=== PATIENT | female | born 1960 | race African-American/Black ===

== ENCOUNTER 2017-12-05 16:28 | Inpatient (IN) | payer OTHER ==
--- NOTE | 2017-12-05 19:55 | HP ---
Admission [facility] Chief Complaint: I am here for rehab Allergies/Adverse Reactions: Allergies Allergy/AdvReac Type Severity Reaction Status Date / Time No Known Allergies Allergy Unverified 12/05/17 19:08 History of Present Illness: 57 yo female with hx of alcohol and cocaine dependence is here seeking rehab.PMHX: COPD, HTN, HVI + on [facility] therapy reports compliance, hyperlipidemia , depression, anxiety, insomnia. Denies any suicidal / homicidal ideation or suicide attempts. Longest period of time 3 years. - Ebola screening Have you traveled outside of the country in the last 21 days: No Have you had contact with anyone from an Ebola affected area: No Do you have a fever: No - Review of Systems Constitutional: No Symptoms Reported, Changes in sleep, Weakness (15 lbs), Unintentional Wgt. Loss EENT: reports: No Symptoms Reported Respiratory: reports: No Symptoms reported Cardiac: reports: No Symptoms Reported GI: reports: No Symptoms Reported : reports: No Symptoms Reported Musculoskeletal: reports: No Symptoms Reported Integumentary: reports: No Symptoms Reported Neuro: reports: Tingling (neuropathy left thumb) Endocrine: reports: No Symptoms Reported Hematology: reports: No Symptoms Reported Psychiatric: reports: Orientated x3, Anxious Other Systems: Reviewed and Negative Patient History - Patient Medical History Hx Anemia: No Hx Asthma: No Hx Chronic Obstructive Pulmonary Disease (COPD): Yes Hx Cancer: No Hx Cardiac Disorders: No Hx Congestive Heart Failure: No Hx Hypertension: Yes Hx Hypercholesterolemia: Yes Hx Pacemaker: No HX Cerebrovascular Accident: No Hx Seizures: No Hx Dementia: No Hx Diabetes: No Hx Gastrointestinal Disorders: No Hx Liver Disease: No Hx Genitourinary Disorders: No 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) Hx Renal Disease (ESRD): No Hx Thyroid Disease: No Hx Human Immunodeficiency Virus (HIV): Yes (since 1991, on meds, reports compliance ) Hx Hepatitis C: No Hx Depression: Yes Hx Suicide Attempt: No Hx Bipolar Disorder: No Hx Schizophrenia: No - Patient Surgical History Past Surgical History: Yes Hx Neurologic Surgery: No Hx Cataract Extraction: No Hx Cardiac Surgery: No Hx Lung Surgery: No Hx Breast Surgery: No Hx Breast Biopsy: No Hx Abdominal Surgery: No Hx Appendectomy: No Hx Cholecystectomy: Yes (open cholecystectomy in 1979) Hx Genitourinary Surgery: No Hx Section: No Hx Orthopedic Surgery: No Hx Hysterectomy: No Anesthesia Reaction: No - PPD History Previous Implant?: No Documented Results: Positive w/o proof PPD to be Administered?: Yes - Reproductive History Patient is a Female of Child Bearing Age (11 -55 yrs old): No - Smoking Cessation Smoking history: Former smoker Have you smoked in the past 12 months: No If you are a former smoker, when did you quit?: 2016 Hx Chewing Tobacco Use: No Initiated information on smoking cessation: Yes 'Breaking Loose' booklet given: 12/05/17 - Substance & Tx. History Hx Alcohol Use: Yes Hx Substance Use: Yes Substance Use Type: Alcohol, Cocaine Hx Substance Use Treatment: Yes ([facility] Summer 2016) - Substances Abused Alcohol Route: Oral Frequency: Daily Amount used: 1 pint Bacardi Age of first use: 18 Date of Last Use: 12/03/17 Crack Route: Smoking Frequency: Daily Amount used: $40 Age of first use: 18 Date of Last Use: 12/03/17 Family Disease History - Family Disease History Family Disease History: Heart Disease: Mother (alive, Stroke ), Other: Father ( ), Mother Admission Physical Exam [facility] - Physical General Appearance: Yes: No Apparent Distress, Appropriately Dressed, Thin, Anxious HEENTM: Yes: EOMI, Normal ENT Inspection, Pharynx Normal, Tm's normal, Other ( wears glasses) Respiratory: Yes: Chest Non-Tender, Lungs Clear, Normal Breath Sounds, No Respiratory Distress, No Accessory Muscle Use Neck: Yes: No masses,lesions,Nodules, Trachea in good position Breast: Yes: Breast Exam Deferred Cardiology: Yes: Regular Rhythm, Regular Rate Abdominal: Yes: Normal Bowel Sounds, Non Tender Genitourinary: Yes: Within Normal Limits Back: Yes: Normal Inspection Musculoskeletal: Yes: Within Normal Limits, full range of Motion, Gait Steady, Pelvis Stable Extremities: Yes: Normal Capillary Refill, Normal Inspection, Normal Range of Motion, Non-Tender Neurological: Yes: law enforcement director II-XII NML intact, Fully Oriented, Alert, Motor Strength 5/5, Normal Mood/Affect, Normal Response Integumentary: Yes: Normal Color, Dry, Warm Lymphatic: Yes: Within Normal Limits - Diagnostic (1) COPD (chronic obstructive pulmonary disease) Current Visit: Yes Status: Chronic Qualifiers: Emphysema type: unspecified (2) HTN (hypertension) Current Visit: Yes Status: Chronic Qualifiers: Hypertension type: unspecified Qualified Code(s): I10 - Essential (primary ) hypertension (3) Hyperlipidemia Current Visit: Yes Status: Chronic Qualifiers: Hyperlipidemia type: unspecified Qualified Code(s): E78.5 - Hyperlipidemia , unspecified (4) Alcohol dependence Current Visit: Yes Status: Active (5) Cocaine dependence Current Visit: Yes Status: Active (6) Human immunodeficiency virus infection Current Visit: Yes Status: Chronic (7) Weight decreased Current Visit: Yes Status: Active [facility] Breath Alcohol Content Breath Alcohol Content: 0 Inpatient Rehab Admission - Initial Determination Are CD services needed?: Yes Free of communicable disease: Yes Not in need of hospitalization: Yes - Rehab Admission Criteria Previous failed treatment: Yes Poor recovery environment: Yes Comorbidities: Yes Lacks judgement: Yes Patient is meeting Inpatient Rehab admission criteria:: Yes
[2017-12-05] MEDS ORDERED: MAG HYDROX/AL HYDROX/SIMETH 30 ML UNIT-DOSE CUP PO PRN (20:17)
[2017-12-05] MEDS ORDERED: ACETAMINOPHEN 325 MG TABLET (FP) PO PRN (20:17)
[2017-12-05] MEDS ORDERED: hydrOXYzine PAMOATE 50 MG CAPSULE (FP) PO PRN (20:17)
[2017-12-05] MEDS ORDERED: guaiFENesin/D-METHORPHAN HB 10 ML UNIT-DOSE CUPS PO PRN (20:17)
[2017-12-05] MEDS ORDERED: MAGNESIUM HYDROX 2400MG/30ML ORAL SUSPENSION 30 ML CUP PO PRN (20:17)
[2017-12-05] MEDS ORDERED: MAGNESIUM CITRATE 300 ML BOTTLE PO PRN (20:17)
[2017-12-05] MEDS ORDERED: IBUPROFEN 400 MG TABLET (FP) PO PRN (20:17)
[2017-12-05] MEDS ORDERED: LOPERAMIDE HCL 2 MG CAPSULE PO PRN (20:17)
[2017-12-05] MEDS ORDERED: P-EPHED 60MG/TRIPROLIDI 2.5MG TABLET PO PRN (20:17)
[2017-12-05] MEDS ORDERED: MENTHOL/PHENOL 1 EACH UD MM PRN (20:17)
[2017-12-05] MEDS ORDERED: MELATONIN 5 MG TABLETS PO PRN (22:00)
[2017-12-05] MEDS: ALBUTEROL SO4 18 GM HFA INHALER IH SCH (23:38)
[2017-12-05] MEDS: THIAMINE HCL 100 MG TABLET (FP) PO SCH (23:38)
[2017-12-06 02:19] LABS: URINE APPEARANCE SLCLOUDY; URINE BILIRUBIN NEGATIVE (<2.0 mg/dL); URINE BLOOD NEGATIVE (NEGATIVE); URINE COLOR YELLOW; URINE GLUCOSE (UA) NEGATIVE (NEGATIVE); URINE KETONE NEGATIVE (NEGATIVE); URINE LEUK ESTERASE NEGATIVE (NEGATIVE); URINE NITRITE NEGATIVE (NEGATIVE); URINE PROTEIN NEGATIVE (NEGATIVE); URINE UROBILINOGEN NEGATIVE mg/dL (0.2-1.0)
[2017-12-06] MEDS: ALBUTEROL SO4 18 GM HFA INHALER IH SCH (07:29)
[2017-12-06] MEDS ORDERED: ALBUTEROL SO4 18 GM HFA INHALER IH PRN (08:49)
[2017-12-06] MEDS: PRENATAL VITAMINS W/ FOLIC ACID TABLET (FP) PO SCH (09:37)
[2017-12-06] MEDS: valACYclovir HCL 500 MG TABLET (FP) PO SCH (09:37)
--- NOTE | 2017-12-06 10:19 | PN ---
[facility] Progress Note Note: Called by nursing staff to order medications for patient admitted to inpatient rehab on 12/05/17. Medication reconciliation done. She is on Wellbutrin XL 150 mg po daily and Trazadone 25 mg po HS. Patient to have her own medications
[2017-12-06 10:33] LABS: HEMATOCRIT 36.3 % (32.4-45.2); HEMOGLOBIN 12.3 GM/dL (10.7-15.3); MCH 33.7 pg (25.7-33.7); MCHC 33.9 g/dl (32.0-36.0); MEAN CELL VOLUME 99.5 fl (80-96); MEAN PLT VOLUME 8.2 fl (7.5-11.1); PLATELET COUNT 304 K/MM3 (134-434); RBC 3.65 M/mm3 (3.60-5.2); WHITE BLOOD COUNT 3.3 K/mm3 (4.0-10.0)
--- NOTE | 2017-12-06 10:41 | EKG ---
Test Reason : Blood Pressure : / mmHG Vent. Rate : 064 BPM Atrial Rate : 064 BPM P-R Int : 152 ms QRS Dur : 078 ms QT Int : 416 ms P-R-T Axes : 068 048 051 degrees QTc Int : 429 ms NORMAL SINUS RHYTHM WITH SINUS ARRHYTHMIA NORMAL ECG NO PREVIOUS ECGS AVAILABLE Confirmed by MD Mikey, Srikanth ([id number]) on 12/06/2017 10:40:35 AM Referred By: Confirmed By:Srikanth Jensen MD
[2017-12-06 10:52] LABS: CALCIUM 8.9 mg/dL (8.5-10.1); CHLORIDE 110 mmol/L (98-107); POTASSIUM 3.7 mmol/L (3.5-5.1); SODIUM 145 mmol/L (136-145)
[2017-12-06 10:57] LABS: ALBUMIN 3.5 g/dl (3.4-5.0); ALK PHOS 81 U/L (45-117); ANION GAP 7 (8-16); BILIRUBIN,TOTAL 0.3 mg/dL (0.2-1.0); BLOOD UREA NITROGEN 17 mg/dL (7-18); CO2 28 mmol/L (21-32); CREATININE 0.8 mg/dL (0.55-1.02); GLUCOSE,RANDOM 91 mg/dL (74-106); SGOT/AST 14 U/L (15-37); SGPT/ALT 17 U/L (12-78)
[2017-12-06] MEDS ORDERED: PT OWN MED DRAWER 7, Y5N ONE ×3 (11:36→22:00)
[2017-12-06] MEDS ORDERED: ALBUTEROL SO4 2.5/IPRATROPIUM 0.5 INH SOL 3 ML VIAL.NEB. NEB PRN (12:06)
--- NOTE | 2017-12-06 12:26 | HP ---
Psychiatrist Admission - Data Date of interview: 12/06/17 Admission source: [facility] Identifying data: This is the second 3E inpatient rehabilitation admission for this single AA female, residing in [facility] and supported on [facility] benefits. Medical History: of HIV positive since 1991 HTN and COPD. Psychiatric History: Patient reports history of depression and anxiety, no history of psychiatric hospitlaizations, states has been in the treatment in outpatient setting at [facility], currently on Trazodone 25 mg po hs and Wellbutrin 150 mg po daily, reports no history of suicidal attepmts. Physical/Sexual Abuse/Trauma History: Patient denies history of sexual, physical and verbal abuse. Vital Signs: Vital Signs - 24 hr 12/06/17 12/06/17 12/06/17 03:30 07:37 09:43 Temperature 97.8 F Pulse Rate 65 81 Respiratory 18 18 Rate Blood Pressure 125/83 112/77 Allergies/Adverse Reactions: Allergies Allergy/AdvReac Type Severity Reaction Status Date / Time No Known Allergies Allergy Verified 12/06/17 09:54 Date of last physical exam: 12/05/17 Concur with the findings of this exam: Yes - Substance Abuse/Tx History Hx Alcohol Use: Yes Hx Substance Use: Yes Substance Use Type: Alcohol (started at age 18, daily 1 pint baradi), Cocaine ( started at age 18, daily use for $40) Hx Substance Use Treatment: Yes ([facility] 2017.) Mental Status Exam - Mental Status Exam Alert and Oriented to: Time, Place, Person Cognitive Function: Good Patient Appearance: Well Groomed Mood: Hopeful Affect: Appropriate, Mood Congruent Patient Behavior: Appropriate, Cooperative Speech Pattern: Clear, Appropriate Voice Loudness: Normal Thought Process: Intact, Goal Oriented Hallucinations: Denies Homicidal Ideation: Denies Insight/Judgement: Fair Sleep: Well Appetite: Good Muscle strength/Tone: Normal Gait/Station: Normal Psychiatric Findings - Problem List (Model 1, 2,3) (1) MDD (major depressive disorder) Current Visit: Yes Status: Acute (2) Alcohol dependence Current Visit: Yes Status: Active (3) Cocaine dependence Current Visit: Yes Status: Active (4) COPD (chronic obstructive pulmonary disease) Current Visit: Yes Status: Chronic Qualifiers: Emphysema type: unspecified (5) HTN (hypertension) Current Visit: Yes Status: Chronic Qualifiers: Hypertension type: unspecified Qualified Code(s): I10 - Essential (primary ) hypertension (6) Human immunodeficiency virus infection Current Visit: Yes Status: Chronic (7) Hyperlipidemia Current Visit: Yes Status: Chronic Qualifiers: Hyperlipidemia type: unspecified Qualified Code(s): E78.5 - Hyperlipidemia , unspecified - Initial Treatment Plan Initial Treatment Plan: Will continue her current medications, monitor progress as needed.
[2017-12-06] MEDS: PATIENT'S OWN MEDICATION (NON-FORMULARY) (Amlodipine Besylate [Amlodipine Besylate] 10 MG) PO SCH (12:34)
[2017-12-06] MEDS: [UNRECOGNIZED DRUG - OTHER] PO SCH ×2 (12:34→21:57)
[2017-12-06] MEDS: CALCIUM CARBONATE PO SCH ×2 (12:34→21:57)
[2017-12-06] MEDS: BUPROPION HCL 150 MG PO SCH (12:34)
[2017-12-06] MEDS: TRIAMTERENE AND HCTZ - 37.5 MG/25 MG CAPSULE PO SCH (12:34)
[2017-12-06] MEDS: VITAMIN D3 PO SCH ×2 (12:34→21:57)
[2017-12-06] MEDS ORDERED: PATIENT'S OWN MEDICATION (NON-FORMULARY) (Famotidine [Pepcid] 40 MG) PO SCH ×2 (14:00→22:00)
[2017-12-06] MEDS: THIAMINE HCL 100 MG TABLET (FP) PO SCH (21:56)
[2017-12-06] MEDS: PATIENT'S OWN MEDICATION (NON-FORMULARY) (Montelukast Sodium [Singulair] 10 MG) PO SCH (22:00)
[2017-12-06] MEDS: PATIENT'S OWN MEDICATION (NON-FORMULARY) (Pravastatin Sodium [Pravastatin Sodium] 10 MG) PO SCH (22:01)
[2017-12-07] MEDS: PATIENT'S OWN MEDICATION (NON-FORMULARY) (Famotidine [Pepcid] 40 MG) PO SCH (06:36)
[2017-12-07] MEDS ORDERED: PT OWN MED DRAWER 7, Y5N ONE (08:55)
[2017-12-07] MEDS: TRIAMTERENE AND HCTZ - 37.5 MG/25 MG CAPSULE PO SCH (10:54)
[2017-12-07] MEDS: BUPROPION HCL 150 MG PO SCH (10:54)
[2017-12-07] MEDS: PATIENT'S OWN MEDICATION (NON-FORMULARY) (Amlodipine Besylate [Amlodipine Besylate] 10 MG) PO SCH (10:54)
[2017-12-07] MEDS: valACYclovir HCL 500 MG TABLET (FP) PO SCH (10:54)
[2017-12-07] MEDS: PRENATAL VITAMINS W/ FOLIC ACID TABLET (FP) PO SCH (10:54)
[2017-12-07] MEDS: CALCIUM CARBONATE PO SCH ×2 (10:55→21:52)
[2017-12-07] MEDS: [UNRECOGNIZED DRUG - OTHER] PO SCH ×2 (10:55→21:52)
[2017-12-07] MEDS: VITAMIN D3 PO SCH ×2 (10:55→21:52)
--- NOTE | 2017-12-07 10:58 | PN ---
[facility] Progress Note Note: Pt presents with complaints of fungal rash to feet. Laboratory Tests 12/05/17 12/06/17 12/06/17 20:03 07:00 07:00 WBC 3.3 L RBC 3.65 Hgb 12.3 Hct 36.3 MCV 99.5 H MCH 33.7 MCHC 33.9 RDW 14.0 Plt Count 304 MPV 8.2 Sodium 145 Potassium 3.7 Chloride 110 H Carbon Dioxide 28 Anion Gap 7 L BUN 17 Creatinine 0.8 Creat Clearance w eGFR > 60 Random Glucose 91 Calcium 8.9 Total Bilirubin 0.3 AST 14 L ALT 17 Alkaline Phosphatase 81 Total Protein 7.0 Albumin 3.5 Urine Color Yellow Urine Appearance Slcloudy Urine pH 6.0 Ur Specific [place] 1.019 Urine Protein Negative Urine Glucose (UA) Negative Urine Ketones Negative Urine Blood Negative Urine Nitrite Negative Urine Bilirubin Negative Urine Urobilinogen Negative Ur Leukocyte Esterase Negative Vital Signs Temperature 98.2 F 12/07/17 07:18 Pulse Rate 68 12/07/17 09:56 Respiratory Rate 18 12/07/17 07:18 Blood Pressure 123/83 12/07/17 09:56 O2 Sat by Pulse Oximetry (%) Subj: + rash and itching to feet Obj: skin warm and dry. + cracking in between toes. No discharge or inflammation. A/P: fungal rash of feet/athletes foot will order clotrimazole cream to feet BID and continue to monitor clinically
[2017-12-07] MEDS: THIAMINE HCL 100 MG TABLET (FP) PO SCH (21:50)
[2017-12-07] MEDS: CLOTRIMAZOLE 1% CREAM 15 GM TUBE TP SCH (21:51)
[2017-12-07] MEDS: PATIENT'S OWN MEDICATION (NON-FORMULARY) (Montelukast Sodium [Singulair] 10 MG) PO SCH (21:52)
[2017-12-07] MEDS: PATIENT'S OWN MEDICATION (NON-FORMULARY) (Pravastatin Sodium [Pravastatin Sodium] 10 MG) PO SCH (21:55)
[2017-12-08] MEDS: PATIENT'S OWN MEDICATION (NON-FORMULARY) (Famotidine [Pepcid] 40 MG) PO SCH (06:30)
[2017-12-08] MEDS ORDERED: PT OWN MED DRAWER 7, Y5N ONE ×4 (08:46→21:54)
[2017-12-08] MEDS: PRENATAL VITAMINS W/ FOLIC ACID TABLET (FP) PO SCH (10:30)
[2017-12-08] MEDS: valACYclovir HCL 500 MG TABLET (FP) PO SCH (10:30)
[2017-12-08] MEDS: BUPROPION HCL 150 MG PO SCH (10:31)
[2017-12-08] MEDS: PATIENT'S OWN MEDICATION (NON-FORMULARY) (Amlodipine Besylate [Amlodipine Besylate] 10 MG) PO SCH (10:31)
[2017-12-08] MEDS: TRIAMTERENE AND HCTZ - 37.5 MG/25 MG CAPSULE PO SCH (10:32)
[2017-12-08] MEDS: [UNRECOGNIZED DRUG - OTHER] PO SCH ×2 (10:32→21:51)
[2017-12-08] MEDS: VITAMIN D3 PO SCH ×2 (10:32→21:51)
[2017-12-08] MEDS: CALCIUM CARBONATE PO SCH ×2 (10:32→21:51)
[2017-12-08] MEDS: CLOTRIMAZOLE 1% CREAM 15 GM TUBE TP SCH ×2 (10:33→21:54)
[2017-12-08] MEDS: PATIENT'S OWN MEDICATION (NON-FORMULARY) (Montelukast Sodium [Singulair] 10 MG) PO SCH (21:52)
[2017-12-08] MEDS: PATIENT'S OWN MEDICATION (NON-FORMULARY) (Pravastatin Sodium [Pravastatin Sodium] 10 MG) PO SCH (21:53)
[2017-12-08] MEDS: THIAMINE HCL 100 MG TABLET (FP) PO SCH (21:54)
[2017-12-09] MEDS ORDERED: PT OWN MED DRAWER 7, Y5N ONE ×4 (05:51→22:01)
[2017-12-09] MEDS: PATIENT'S OWN MEDICATION (NON-FORMULARY) (Famotidine [Pepcid] 40 MG) PO SCH (06:13)
[2017-12-09] MEDS: PRENATAL VITAMINS W/ FOLIC ACID TABLET (FP) PO SCH (10:59)
[2017-12-09] MEDS: BUPROPION HCL 150 MG PO SCH (10:59)
[2017-12-09] MEDS: TRIAMTERENE AND HCTZ - 37.5 MG/25 MG CAPSULE PO SCH (10:59)
[2017-12-09] MEDS: VITAMIN D3 PO SCH ×2 (10:59→21:58)
[2017-12-09] MEDS: CALCIUM CARBONATE PO SCH ×2 (10:59→21:58)
[2017-12-09] MEDS: valACYclovir HCL 500 MG TABLET (FP) PO SCH (10:59)
[2017-12-09] MEDS: CLOTRIMAZOLE 1% CREAM 15 GM TUBE TP SCH ×2 (10:59→22:02)
[2017-12-09] MEDS: [UNRECOGNIZED DRUG - OTHER] PO SCH ×2 (10:59→21:58)
[2017-12-09] MEDS: PATIENT'S OWN MEDICATION (NON-FORMULARY) (Amlodipine Besylate [Amlodipine Besylate] 10 MG) PO SCH (11:00)
[2017-12-09] MEDS: PATIENT'S OWN MEDICATION (NON-FORMULARY) (Montelukast Sodium [Singulair] 10 MG) PO SCH (21:58)
[2017-12-09] MEDS: THIAMINE HCL 100 MG TABLET (FP) PO SCH (21:58)
[2017-12-09] MEDS: PATIENT'S OWN MEDICATION (NON-FORMULARY) (Pravastatin Sodium [Pravastatin Sodium] 10 MG) PO SCH (21:59)
[2017-12-10] MEDS ORDERED: PT OWN MED DRAWER 7, Y5N ONE ×3 (06:01→10:45)
[2017-12-10] MEDS: PATIENT'S OWN MEDICATION (NON-FORMULARY) (Famotidine [Pepcid] 40 MG) PO SCH (06:55)
[2017-12-10] MEDS: PRENATAL VITAMINS W/ FOLIC ACID TABLET (FP) PO SCH (10:39)
[2017-12-10] MEDS: CALCIUM CARBONATE PO SCH ×2 (10:40→22:06)
[2017-12-10] MEDS: [UNRECOGNIZED DRUG - OTHER] PO SCH ×2 (10:40→22:06)
[2017-12-10] MEDS: VITAMIN D3 PO SCH ×2 (10:40→22:06)
[2017-12-10] MEDS: valACYclovir HCL 500 MG TABLET (FP) PO SCH (10:40)
[2017-12-10] MEDS: BUPROPION HCL 150 MG PO SCH (10:41)
[2017-12-10] MEDS: PATIENT'S OWN MEDICATION (NON-FORMULARY) (Amlodipine Besylate [Amlodipine Besylate] 10 MG) PO SCH (10:42)
[2017-12-10] MEDS: CLOTRIMAZOLE 1% CREAM 15 GM TUBE TP SCH ×2 (10:44→22:05)
[2017-12-10] MEDS: TRIAMTERENE AND HCTZ - 37.5 MG/25 MG CAPSULE PO SCH (10:44)
[2017-12-10] MEDS: THIAMINE HCL 100 MG TABLET (FP) PO SCH (22:01)
[2017-12-10] MEDS: PATIENT'S OWN MEDICATION (NON-FORMULARY) (Montelukast Sodium [Singulair] 10 MG) PO SCH (22:05)
[2017-12-10] MEDS: PATIENT'S OWN MEDICATION (NON-FORMULARY) (Pravastatin Sodium [Pravastatin Sodium] 10 MG) PO SCH (22:05)
[2017-12-11] MEDS ORDERED: PT OWN MED DRAWER 7, Y5N ONE ×3 (05:59→10:29)
[2017-12-11] MEDS: PATIENT'S OWN MEDICATION (NON-FORMULARY) (Famotidine [Pepcid] 40 MG) PO SCH (06:52)
[2017-12-11] MEDS: TRIAMTERENE AND HCTZ - 37.5 MG/25 MG CAPSULE PO SCH (10:26)
[2017-12-11] MEDS: PATIENT'S OWN MEDICATION (NON-FORMULARY) (Amlodipine Besylate [Amlodipine Besylate] 10 MG) PO SCH (10:26)
[2017-12-11] MEDS: [UNRECOGNIZED DRUG - OTHER] PO SCH ×2 (10:26→22:17)
[2017-12-11] MEDS: PRENATAL VITAMINS W/ FOLIC ACID TABLET (FP) PO SCH (10:26)
[2017-12-11] MEDS: CALCIUM CARBONATE PO SCH ×2 (10:26→22:17)
[2017-12-11] MEDS: BUPROPION HCL 150 MG PO SCH (10:26)
[2017-12-11] MEDS: VITAMIN D3 PO SCH ×2 (10:26→22:17)
[2017-12-11] MEDS: CLOTRIMAZOLE 1% CREAM 15 GM TUBE TP SCH ×2 (10:27→22:16)
[2017-12-11] MEDS: valACYclovir HCL 500 MG TABLET (FP) PO SCH (10:28)
[2017-12-11] MEDS: THIAMINE HCL 100 MG TABLET (FP) PO SCH (22:13)
[2017-12-11] MEDS: PATIENT'S OWN MEDICATION (NON-FORMULARY) (Pravastatin Sodium [Pravastatin Sodium] 10 MG) PO SCH (22:14)
[2017-12-11] MEDS: PATIENT'S OWN MEDICATION (NON-FORMULARY) (Montelukast Sodium [Singulair] 10 MG) PO SCH (22:15)
[2017-12-11] MEDS: TRAZODONE HCL PO PRN (22:15)
[2017-12-12] MEDS: PATIENT'S OWN MEDICATION (NON-FORMULARY) (Alendronate Na [Fosamax (Weekly)] 70 MG) PO SCH (06:22)
[2017-12-12] MEDS: PATIENT'S OWN MEDICATION (NON-FORMULARY) (Famotidine [Pepcid] 40 MG) PO SCH (06:23)
[2017-12-12] MEDS ORDERED: PT OWN MED DRAWER 7, Y5N ONE ×2 (09:05→21:45)
[2017-12-12] MEDS: valACYclovir HCL 500 MG TABLET (FP) PO SCH (11:07)
[2017-12-12] MEDS: PRENATAL VITAMINS W/ FOLIC ACID TABLET (FP) PO SCH (11:07)
[2017-12-12] MEDS: TRIAMTERENE AND HCTZ - 37.5 MG/25 MG CAPSULE PO SCH (11:08)
[2017-12-12] MEDS: PATIENT'S OWN MEDICATION (NON-FORMULARY) (Amlodipine Besylate [Amlodipine Besylate] 10 MG) PO SCH (11:09)
[2017-12-12] MEDS: CALCIUM CARBONATE PO SCH ×2 (11:10→21:46)
[2017-12-12] MEDS: VITAMIN D3 PO SCH ×2 (11:10→21:46)
[2017-12-12] MEDS: [UNRECOGNIZED DRUG - OTHER] PO SCH ×2 (11:10→21:46)
[2017-12-12] MEDS: BUPROPION HCL 150 MG PO SCH (11:11)
[2017-12-12] MEDS: CLOTRIMAZOLE 1% CREAM 15 GM TUBE TP SCH ×2 (11:11→21:46)
[2017-12-12] MEDS: COLLOIDAL OATMEAL 1 BAR EACH TP PRN (15:36)
[2017-12-12] MEDS: THIAMINE HCL 100 MG TABLET (FP) PO SCH (21:43)
[2017-12-12] MEDS: PATIENT'S OWN MEDICATION (NON-FORMULARY) (Pravastatin Sodium [Pravastatin Sodium] 10 MG) PO SCH (21:44)
[2017-12-12] MEDS: PATIENT'S OWN MEDICATION (NON-FORMULARY) (Montelukast Sodium [Singulair] 10 MG) PO SCH (21:45)
[2017-12-13] MEDS: PATIENT'S OWN MEDICATION (NON-FORMULARY) (Famotidine [Pepcid] 40 MG) PO SCH (06:27)
[2017-12-13] MEDS: valACYclovir HCL 500 MG TABLET (FP) PO SCH (10:48)
[2017-12-13] MEDS: CALCIUM CARBONATE PO SCH ×2 (10:49→21:47)
[2017-12-13] MEDS: PRENATAL VITAMINS W/ FOLIC ACID TABLET (FP) PO SCH (10:49)
[2017-12-13] MEDS: [UNRECOGNIZED DRUG - OTHER] PO SCH ×2 (10:49→21:47)
[2017-12-13] MEDS: PATIENT'S OWN MEDICATION (NON-FORMULARY) (Amlodipine Besylate [Amlodipine Besylate] 10 MG) PO SCH (10:49)
[2017-12-13] MEDS: VITAMIN D3 PO SCH ×2 (10:49→21:47)
[2017-12-13] MEDS: TRIAMTERENE AND HCTZ - 37.5 MG/25 MG CAPSULE PO SCH (10:49)
[2017-12-13] MEDS: BUPROPION HCL 150 MG PO SCH (10:49)
[2017-12-13] MEDS: CLOTRIMAZOLE 1% CREAM 15 GM TUBE TP SCH ×2 (10:52→21:49)
[2017-12-13] MEDS ORDERED: PT OWN MED DRAWER 7, Y5N ONE ×2 (11:00→20:16)
[2017-12-13] MEDS: THIAMINE HCL 100 MG TABLET (FP) PO SCH (21:48)
[2017-12-13] MEDS: PATIENT'S OWN MEDICATION (NON-FORMULARY) (Montelukast Sodium [Singulair] 10 MG) PO SCH (21:48)
[2017-12-13] MEDS: PATIENT'S OWN MEDICATION (NON-FORMULARY) (Pravastatin Sodium [Pravastatin Sodium] 10 MG) PO SCH (21:48)
[2017-12-14] MEDS: PATIENT'S OWN MEDICATION (NON-FORMULARY) (Famotidine [Pepcid] 40 MG) PO SCH (07:09)
[2017-12-14] MEDS: TRIAMTERENE AND HCTZ - 37.5 MG/25 MG CAPSULE PO SCH (10:46)
[2017-12-14] MEDS: valACYclovir HCL 500 MG TABLET (FP) PO SCH (10:46)
[2017-12-14] MEDS: PRENATAL VITAMINS W/ FOLIC ACID TABLET (FP) PO SCH (10:46)
[2017-12-14] MEDS: VITAMIN D3 PO SCH ×2 (10:47→21:40)
[2017-12-14] MEDS: [UNRECOGNIZED DRUG - OTHER] PO SCH ×2 (10:47→21:40)
[2017-12-14] MEDS: CALCIUM CARBONATE PO SCH ×2 (10:47→21:40)
[2017-12-14] MEDS: PATIENT'S OWN MEDICATION (NON-FORMULARY) (Amlodipine Besylate [Amlodipine Besylate] 10 MG) PO SCH (10:49)
[2017-12-14] MEDS ORDERED: PT OWN MED DRAWER 7, Y5N ONE ×2 (10:49→21:43)
[2017-12-14] MEDS: BUPROPION HCL 150 MG PO SCH (10:49)
[2017-12-14] MEDS: CLOTRIMAZOLE 1% CREAM 15 GM TUBE TP SCH ×2 (10:50→21:44)
[2017-12-14] MEDS: PATIENT'S OWN MEDICATION (NON-FORMULARY) (Pravastatin Sodium [Pravastatin Sodium] 10 MG) PO SCH (21:40)
[2017-12-14] MEDS: TRAZODONE HCL PO PRN (21:40)
[2017-12-14] MEDS: PATIENT'S OWN MEDICATION (NON-FORMULARY) (Montelukast Sodium [Singulair] 10 MG) PO SCH (21:40)
[2017-12-14] MEDS: THIAMINE HCL 100 MG TABLET (FP) PO SCH (21:41)
[2017-12-15] MEDS: PATIENT'S OWN MEDICATION (NON-FORMULARY) (Famotidine [Pepcid] 40 MG) PO SCH (06:41)
[2017-12-15] MEDS ORDERED: PT OWN MED DRAWER 7, Y5N ONE ×3 (09:22→13:33)
[2017-12-15] MEDS: PATIENT'S OWN MEDICATION (NON-FORMULARY) (Amlodipine Besylate [Amlodipine Besylate] 10 MG) PO SCH (10:33)
[2017-12-15] MEDS: BUPROPION HCL 150 MG PO SCH (10:33)
[2017-12-15] MEDS: [UNRECOGNIZED DRUG - OTHER] PO SCH ×2 (10:33→21:50)
[2017-12-15] MEDS: VITAMIN D3 PO SCH ×2 (10:33→21:50)
[2017-12-15] MEDS: CLOTRIMAZOLE 1% CREAM 15 GM TUBE TP SCH ×2 (10:33→21:52)
[2017-12-15] MEDS: PRENATAL VITAMINS W/ FOLIC ACID TABLET (FP) PO SCH (10:33)
[2017-12-15] MEDS: CALCIUM CARBONATE PO SCH ×2 (10:33→21:50)
[2017-12-15] MEDS: TRIAMTERENE AND HCTZ - 37.5 MG/25 MG CAPSULE PO SCH (10:33)
[2017-12-15] MEDS: valACYclovir HCL 500 MG TABLET (FP) PO SCH (10:35)
[2017-12-15] MEDS: PATIENT'S OWN MEDICATION (NON-FORMULARY) (Pravastatin Sodium [Pravastatin Sodium] 10 MG) PO SCH (21:50)
[2017-12-15] MEDS: THIAMINE HCL 100 MG TABLET (FP) PO SCH (21:50)
[2017-12-15] MEDS: PATIENT'S OWN MEDICATION (NON-FORMULARY) (Montelukast Sodium [Singulair] 10 MG) PO SCH (21:51)
[2017-12-16] MEDS ORDERED: PT OWN MED DRAWER 7, Y5N ONE ×4 (06:05→19:45)
[2017-12-16] MEDS: PATIENT'S OWN MEDICATION (NON-FORMULARY) (Famotidine [Pepcid] 40 MG) PO SCH (06:40)
[2017-12-16] MEDS: valACYclovir HCL 500 MG TABLET (FP) PO SCH (10:55)
[2017-12-16] MEDS: TRIAMTERENE AND HCTZ - 37.5 MG/25 MG CAPSULE PO SCH (10:56)
[2017-12-16] MEDS: VITAMIN D3 PO SCH ×2 (10:56→21:50)
[2017-12-16] MEDS: [UNRECOGNIZED DRUG - OTHER] PO SCH ×2 (10:56→21:50)
[2017-12-16] MEDS: CALCIUM CARBONATE PO SCH ×2 (10:56→21:50)
[2017-12-16] MEDS: BUPROPION HCL 150 MG PO SCH (10:57)
[2017-12-16] MEDS: PATIENT'S OWN MEDICATION (NON-FORMULARY) (Amlodipine Besylate [Amlodipine Besylate] 10 MG) PO SCH (10:57)
[2017-12-16] MEDS: PRENATAL VITAMINS W/ FOLIC ACID TABLET (FP) PO SCH (10:57)
[2017-12-16] MEDS: CLOTRIMAZOLE 1% CREAM 15 GM TUBE TP SCH ×2 (10:57→21:52)
[2017-12-16] MEDS: PATIENT'S OWN MEDICATION (NON-FORMULARY) (Pravastatin Sodium [Pravastatin Sodium] 10 MG) PO SCH (21:49)
[2017-12-16] MEDS: THIAMINE HCL 100 MG TABLET (FP) PO SCH (21:50)
[2017-12-16] MEDS: PATIENT'S OWN MEDICATION (NON-FORMULARY) (Montelukast Sodium [Singulair] 10 MG) PO SCH (21:50)
[2017-12-17] MEDS: PATIENT'S OWN MEDICATION (NON-FORMULARY) (Famotidine [Pepcid] 40 MG) PO SCH (06:38)
[2017-12-17] MEDS: COLLOIDAL OATMEAL 1 BAR EACH TP PRN (07:02)
[2017-12-17] MEDS: CALCIUM CARBONATE PO SCH ×2 (10:47→21:49)
[2017-12-17] MEDS: CLOTRIMAZOLE 1% CREAM 15 GM TUBE TP SCH ×2 (10:47→21:49)
[2017-12-17] MEDS: valACYclovir HCL 500 MG TABLET (FP) PO SCH (10:47)
[2017-12-17] MEDS: TRIAMTERENE AND HCTZ - 37.5 MG/25 MG CAPSULE PO SCH (10:47)
[2017-12-17] MEDS: [UNRECOGNIZED DRUG - OTHER] PO SCH ×2 (10:47→21:49)
[2017-12-17] MEDS: VITAMIN D3 PO SCH ×2 (10:47→21:49)
[2017-12-17] MEDS: PRENATAL VITAMINS W/ FOLIC ACID TABLET (FP) PO SCH (10:47)
[2017-12-17] MEDS: PATIENT'S OWN MEDICATION (NON-FORMULARY) (Amlodipine Besylate [Amlodipine Besylate] 10 MG) PO SCH (10:47)
[2017-12-17] MEDS: BUPROPION HCL 150 MG PO SCH (10:47)
[2017-12-17] MEDS ORDERED: PT OWN MED DRAWER 7, Y5N ONE ×2 (10:55→20:00)
[2017-12-17] MEDS: PATIENT'S OWN MEDICATION (NON-FORMULARY) (Pravastatin Sodium [Pravastatin Sodium] 10 MG) PO SCH (21:48)
[2017-12-17] MEDS: TRAZODONE HCL PO PRN (21:49)
[2017-12-17] MEDS: PATIENT'S OWN MEDICATION (NON-FORMULARY) (Montelukast Sodium [Singulair] 10 MG) PO SCH (21:49)
[2017-12-17] MEDS: THIAMINE HCL 100 MG TABLET (FP) PO SCH (21:50)
[2017-12-18] MEDS: PATIENT'S OWN MEDICATION (NON-FORMULARY) (Famotidine [Pepcid] 40 MG) PO SCH (06:15)
[2017-12-18] MEDS: PRENATAL VITAMINS W/ FOLIC ACID TABLET (FP) PO SCH ×2 (10:34→10:40)
[2017-12-18] MEDS: valACYclovir HCL 500 MG TABLET (FP) PO SCH (10:34)
[2017-12-18] MEDS: CALCIUM CARBONATE PO SCH ×2 (10:34→21:42)
[2017-12-18] MEDS: VITAMIN D3 PO SCH ×2 (10:34→21:42)
[2017-12-18] MEDS: [UNRECOGNIZED DRUG - OTHER] PO SCH ×2 (10:34→21:42)
[2017-12-18] MEDS: BUPROPION HCL 150 MG PO SCH (10:34)
[2017-12-18] MEDS: CLOTRIMAZOLE 1% CREAM 15 GM TUBE TP SCH ×2 (10:35→21:43)
[2017-12-18] MEDS: PATIENT'S OWN MEDICATION (NON-FORMULARY) (Amlodipine Besylate [Amlodipine Besylate] 10 MG) PO SCH (10:35)
[2017-12-18] MEDS: TRIAMTERENE AND HCTZ - 37.5 MG/25 MG CAPSULE PO SCH (10:35)
--- NOTE | 2017-12-18 16:05 | PN ---
Psychiatric Progress Note Vital Signs: Vital Signs Period Temp Pulse Resp BP Sys/Green Pulse Ox Last 24 Hr 98 F 73-95 16-16 100-108/67-75 Date of Session: 12/18/17 Chief Complaint:: Discharge Note HPI: Patient addressing Alcohol and Cocaine Dependence comorbid with MDD ROS: HTN, HLD, HIV, COPD were medically managed Current Medications: Active Medications Generic Name Dose Route Start Last Admin Trade Name Freq PRN Reason Stop Dose Admin Acetaminophen 650 mg 12/05/17 20:17 Tylenol - PO Q4H PRN FEVER Al Hydroxide/Mg Hydroxide 30 ml 12/05/17 20:17 12/17/17 17:34 Mylanta Oral Suspension - PO 30 ml Q6H PRN Administration DYSPEPSIA Albuterol Sulfate 2 puff 12/06/17 08:49 12/06/17 09:36 Ventolin Hfa Inhaler - IH 2 puff Q4H PRN Administration Dyspnea Albuterol/Ipratropium 1 amp 12/06/17 12:06 Duoneb - NEB Q6H PRN SHORTNESS OF BREATH Clotrimazole 1 applic 12/07/17 22:00 12/18/17 10:35 Lotrimin 1% Cream - TP 1 applic BID YASMIN Administration Colloidal Oatmeal 1 applic 12/12/17 13:34 12/17/17 07:02 Aveeno Soap - TP 1 applic DAILY PRN Administration HYGEINE Eucalyptus/Menthol/Phenol/Sorbitol 1 each 12/05/17 20:17 Cepastat Lozenge - MM Q4H PRN SORE THROAT Guaifenesin 10 ml 12/05/17 20:17 12/06/17 14:04 Robitussin Dm - PO 10 ml Q6H PRN Administration COUGH Hydroxyzine Pamoate 50 mg 12/05/17 20:17 Vistaril - PO Q4H PRN AGITATION Ibuprofen 400 mg 12/05/17 20:17 Motrin - PO Q6H PRN Pain level 4-6 Loperamide HCl 4 mg 12/05/17 20:17 Imodium - PO Q6H PRN DIARRHEA Magnesium Citrate 300 ml 12/05/17 20:17 Citroma - PO Q48H PRN CONSTIPATION Magnesium Hydroxide 30 ml 12/05/17 20:17 Milk Of Magnesia - PO DAILY PRN CONSTIPATION Melatonin 5 mg 12/05/17 22:00 Melatonin PO HS PRN INSOMNIA Non-Formulary Medication 70 mg 12/12/17 07:00 12/12/17 06:22 Alendronate Na [Fosamax (Weekly)] PO 70 mg Mo@0700 YASMIN Administration Non-Formulary Medication 1 each 12/06/17 10:00 12/18/17 10:35 Emtricitab/Rilpiviri/Tenof Ala [Odefsey Tablet] PO 1 each DAILY YASMIN Administration Non-Formulary Medication 10 mg 12/05/17 22:00 12/17/17 21:48 Pravastatin Sodium [Pravastatin Sodium] PO 10 mg HS YASMIN Administration Non-Formulary Medication 150 mg 12/06/17 10:15 12/18/17 10:34 Bupropion Hcl [Bupropion Xl] PO 150 mg DAILY YASMIN Administration Patient's Own 25 mg 12/06/17 10:15 12/17/17 21:49 Medication (Non- PO 25 mg Formulary) ( HS PRN Administration Trazodone Hcl [ INSOMNIA Desyrel -] 50 Mg) Non-Formulary Medication 10 mg 12/06/17 10:00 12/18/17 10:35 Amlodipine Besylate [Amlodipine Besylate] PO 10 mg DAILY YASMIN Administration Non-Formulary Medication 1 each 12/06/17 10:30 12/18/17 10:34 Calcium Carbonate/Vitamin D3 [Oyster Shell 500-Vit D3 200 Tb] PO 1 each BID YASMIN Administration Non-Formulary Medication 10 mg 12/06/17 22:00 12/17/17 21:49 Montelukast Sodium [Singulair] PO 10 mg HS YASMIN Administration Non-Formulary Medication 1 each 12/06/17 22:00 12/17/17 21:48 Sennosides/Docusate Sodium [Senexon-S Tablet] PO 1 each HS YASMIN Administration Patient's Own 40 mg 12/07/17 07:00 12/18/17 06:15 Medication (Non- PO 40 mg Formulary) ( DAILY@0700 YASMIN Administration Famotidine [Pepcid] 40 Mg) Multivit/Folic Acid/Iron 1 tab 12/06/17 10:00 12/18/17 10:40 Vitamins (Sjr) - PO Not Given DAILY [facility] Pseudoephedrine/Triprolidine 1 combo 12/05/17 20:17 Actifed - PO TID PRN NASAL CONGESTION Thiamine HCl 100 mg 12/05/17 22:00 12/17/17 21:50 Vitamin B1 - PO 100 mg HS YASMIN Administration Triamterene/HCTZ 1 cap 12/06/17 10:00 12/18/17 10:35 Dyazide 25/37.5mg PO 1 cap DAILY YASMIN Administration Valacyclovir HCl 500 mg 12/06/17 10:00 12/18/17 10:34 Valtrex - PO 500 mg DAILY YASMIN Administration Current Side Effect: No Lab tests ordered: Yes Lab tests reviewed: Yes Provider note:: Patient will complete this program on 12/19/17. She has met her treatment goals and will continue to address her issues in outpatient treatment at [facility] located at [address] [place] [address]. Told group underwriter that from her participation in this program, she has learned to surround herself with sober, positive people and to make meetings. She responded well to Trazadone 25 mg po HS and Wellbutrin XL 150 mg po daily. Scripts for 30 days supply of medications will be electronically transmitted to [facility] at [address] [place] [address]. She is stable for discharge on 12/19/17 Total face to face time:: 35 Psychiatric Treatment Plan - Problem List (1) Alcohol dependence Current Visit: Yes (2) Cocaine dependence Current Visit: Yes (3) MDD (major depressive disorder) Current Visit: Yes (4) COPD (chronic obstructive pulmonary disease) Current Visit: Yes Qualifiers: Emphysema type: unspecified (5) HTN (hypertension) Current Visit: Yes Qualifiers: Hypertension type: unspecified Qualified Code(s): I10 - Essential (primary ) hypertension (6) Human immunodeficiency virus infection Current Visit: Yes (7) Hyperlipidemia Current Visit: Yes Qualifiers: Hyperlipidemia type: unspecified Qualified Code(s): E78.5 - Hyperlipidemia , unspecified Initial treatment plan: Patient will be discharged tomorrow and referred to [facility] in [place], [place] for outpatient treatment
[2017-12-18] MEDS ORDERED: PT OWN MED DRAWER 7, Y5N ONE (20:31)
[2017-12-18] MEDS: PATIENT'S OWN MEDICATION (NON-FORMULARY) (Pravastatin Sodium [Pravastatin Sodium] 10 MG) PO SCH (21:42)
[2017-12-18] MEDS: THIAMINE HCL 100 MG TABLET (FP) PO SCH (21:43)
[2017-12-18] MEDS: PATIENT'S OWN MEDICATION (NON-FORMULARY) (Montelukast Sodium [Singulair] 10 MG) PO SCH (21:44)
[2017-12-18] MEDS: TRAZODONE HCL PO PRN (21:44)
[2017-12-19] MEDS: PATIENT'S OWN MEDICATION (NON-FORMULARY) (Alendronate Na [Fosamax (Weekly)] 70 MG) PO SCH (06:13)
[2017-12-19] MEDS: PATIENT'S OWN MEDICATION (NON-FORMULARY) (Famotidine [Pepcid] 40 MG) PO SCH (06:14)
[2017-12-19 07:14] VITALS: TEMP 97.2
[2017-12-19] MEDS ORDERED: PT OWN MED DRAWER 7, Y5N ONE ×2 (08:41→08:42)
[2017-12-19] MEDS: CALCIUM CARBONATE PO SCH (09:02)
[2017-12-19] MEDS: [UNRECOGNIZED DRUG - OTHER] PO SCH (09:02)
[2017-12-19] MEDS: PATIENT'S OWN MEDICATION (NON-FORMULARY) (Amlodipine Besylate [Amlodipine Besylate] 10 MG) PO SCH (09:02)
[2017-12-19] MEDS: VITAMIN D3 PO SCH (09:02)
[2017-12-19] MEDS: TRIAMTERENE AND HCTZ - 37.5 MG/25 MG CAPSULE PO SCH (09:03)
[2017-12-19] MEDS: valACYclovir HCL 500 MG TABLET (FP) PO SCH (09:03)
[2017-12-19] MEDS: PRENATAL VITAMINS W/ FOLIC ACID TABLET (FP) PO SCH (09:03)
[2017-12-19] MEDS: CLOTRIMAZOLE 1% CREAM 15 GM TUBE TP SCH (09:03)
[2017-12-19 09:12] VITALS: BP 115/80; PULSE 80
[2017-12-19] MEDS: BUPROPION HCL 150 MG PO SCH (10:29)
== END 2017-12-19 10:08 | disposition home or self-care (01) | DRG 772 ==
LOC: YASAS 16:28 → Y3E 20:24
PROVIDERS: ADMIT Psychiatry & Neurology Psychiatry; ATTEND Psychiatry & Neurology Psychiatry
PROC: HZ42ZZZ Group Counseling for Substance Abuse Treatment, Cognitive-Behavioral (ICD-10-PCS; principal; 2017-12-05)
DX: F10.20 Alcohol dependence, uncomplicated (principal); F14.20 Cocaine dependence, uncomplicated; F33.9 Major depressive disorder, recurrent, unspecified; I10 Essential (primary) hypertension; E78.2 Mixed hyperlipidemia; J44.9 Chronic obstructive pulmonary disease, unspecified; R63.4 Abnormal weight loss; Z68.21 Body mass index [BMI] 21.0-21.9, adult; B35.3 Tinea pedis; Z21 Asymptomatic human immunodeficiency virus [HIV] infection status
CPT/HCPCS: 36415; 80053; 81003; 85027; 86593; 93005; 93010